=== PATIENT | female | born 1940 | race Caucasian/White ===

== ENCOUNTER 2022-01-23 14:10 | Inpatient (IN) | payer MEDICARE, BC ==
[~2022-01-23] VITALS: Ht 152.4 cm; Wt 34.0 kg
[2022-01-23 16:04] LABS: HEMOGLOBIN 12.9 gm/dl (12.3-15.3); RED BLOOD COUNT 4.1 M/UL (4.00-5.10)
[2022-01-23 16:08] LABS: WHITE BLOOD COUNT 16.3 K/UL (4.5-11.0)
[2022-01-23 16:30] LABS: BUN/CREATININE RATIO 57 (0-10)
[2022-01-24 03:32] LABS: BUN/CREATININE RATIO 56 (0-10)
[2022-01-24 03:55] LABS: HEMOGLOBIN 10.6 gm/dl (12.3-15.3); RED BLOOD COUNT 3.37 M/UL (4.00-5.10); WHITE BLOOD COUNT 10.2 K/UL (4.5-11.0)
[2022-01-24] MEDS ORDERED: ESTRADIOL1 EACH TD (09:42)
[2022-01-24] MEDS ORDERED: ASPIRIN EC81 MG PO (09:43)
[2022-01-24] MEDS ORDERED: ATENOLOL25 MG PO (09:43)
[2022-01-24] MEDS ORDERED: CARBIDOPA-LEVO1 EAC6 PO (09:43)
[2022-01-25 03:02] LABS: RED BLOOD COUNT 3.18 M/UL (4.00-5.10); WHITE BLOOD COUNT 11.4 K/UL (4.5-11.0)
[2022-01-25 04:22] LABS: BUN/CREATININE RATIO 37 (0-10)
--- NOTE | 2022-01-25 20:19 | NUR ---
Spoke with Monica in pharmacy, ok to crush Carbidopa/Levodopa tab.
--- NOTE | 2022-01-25 20:22 | NUR ---
Spoke with patient account manager sales representative [employer], , verbalized understanding regarding orders. Agrees with plan of care.
--- NOTE | 2022-01-25 21:31 | NUR ---
Patient tolerated PO Levodopa/Carbidopa crushed in applesauce. Patient not observed to cough or appear in distress during medication administration.
[2022-01-26 04:06] LABS: HEMOGLOBIN 9.8 gm/dl (12.3-15.3); RED BLOOD COUNT 3.08 M/UL (4.00-5.10); WHITE BLOOD COUNT 13.5 K/UL (4.5-11.0)
[2022-01-26 04:08] LABS: BUN/CREATININE RATIO 42 (0-10)
--- NOTE | 2022-01-26 19:07 | NUR ---
Patient request that CM attempt to find place in [place], [place] due to patient family being able to be close.
[2022-01-27 03:24] LABS: HEMOGLOBIN 9.1 gm/dl (12.3-15.3); RED BLOOD COUNT 2.9 M/UL (4.00-5.10); WHITE BLOOD COUNT 10.3 K/UL (4.5-11.0)
[2022-01-27 04:10] LABS: BUN/CREATININE RATIO 52 (0-10)
[2022-01-28 03:33] LABS: BUN/CREATININE RATIO 42 (0-10)
[2022-01-28 03:56] LABS: HEMOGLOBIN 8.8 gm/dl (12.3-15.3); RED BLOOD COUNT 2.85 M/UL (4.00-5.10); WHITE BLOOD COUNT 8.2 K/UL (4.5-11.0)
[2022-01-28] MEDS ORDERED: ELIQUIS 2.5 MG2.5 MG PO (09:23)
== END 2022-01-28 15:00 | DRG 522 ==
LOC: ER1 14:10 → M/S 19:14 → CDU 19:14 → M/S 22:06
PROVIDERS: Internal Medicine; Orthopaedic Surgery; Physician Assistant; ADMIT Internal Medicine
PROC: 0PSJXZZ Reposition Left Radius, External Approach (ICD-10-PCS; 2022-01-23)
PROC: 0SRS0JZ Replacement of Left Hip Joint, Femoral Surface with Synthetic Substitute, Open Approach (ICD-10-PCS; principal; 2022-01-24 14:22)
DX: S72.032A Displaced midcervical fracture of left femur, initial encounter for closed fracture (principal); S42.302A Unspecified fracture of shaft of humerus, left arm, initial encounter for closed fracture; S52.512A Displaced fracture of left radial styloid process, initial encounter for closed fracture; S52.612A Displaced fracture of left ulna styloid process, initial encounter for closed fracture; E44.0 Moderate protein-calorie malnutrition; Z68.1 Body mass index [BMI] 19.9 or less, adult; Z20.822 Contact with and (suspected) exposure to COVID-19; Z66 Do not resuscitate; G20 Parkinson's disease; F41.9 Anxiety disorder, unspecified; M06.9 Rheumatoid arthritis, unspecified; E87.6 Hypokalemia; E78.5 Hyperlipidemia, unspecified; K21.9 Gastro-esophageal reflux disease without esophagitis; Z96.651 Presence of right artificial knee joint; L89.156 Pressure-induced deep tissue damage of sacral region; W01.0XXA Fall on same level from slipping, tripping and stumbling without subsequent striking against object, initial encounter; Z90.710 Acquired absence of both cervix and uterus; Z90.89 Acquired absence of other organs; Z98.890 Other specified postprocedural states; Z88.8 Allergy status to other drugs, medicaments and biological substances; Z79.82 Long term (current) use of aspirin; Z79.899 Other long term (current) drug therapy
CPT/HCPCS: ECHO; 25605; 36415; 51702; 70450; 70486; 71045; 72125; 73020; 73070; 73090; 73100; 73502; 73552; 76000; 80048; 80053; 81001; 82550; 82553; 82607; 83735; 84100; 84132; 84439; 84443; 84484; 85025; 85027; 85610; 86850; 86900; 86901; 87086; 93005; 93306; 94760; 96372; 96374; 96375; 97116-GP-CQ; 97162; 97166; 97530-GP-CQ; 99285; A6212; C1776; J0171; J0360; J0690; J1100; J1170; J1650; J2001; J2270; J2405; J2704; J2795; J3370; J3480; J7030; J7050; J7120; U0002